=== PATIENT | male | born 1965 | race African-American/Black ===

== ENCOUNTER 2016-11-07 19:11 | Inpatient (IN) | payer OTHER ==
[~2016-11-07] VITALS: Ht 167.6 cm; Wt 107.0 kg
[~2016-11-07 19:11] MED LIST: COLACE100 MG PO; LAXATIVE15 M2 PO; MOTRIN800 MG PO; OXYCODONE HCL5 MG PO; PERCOCET 5/31 TABLET PO; ZOFRAN4 MG PO
[2016-11-07 20:21] LABS: MCH 27.7 PG (29.0-34.0); MCHC 33.9 G/DL (30.0-36.0); MCV 81.8 FL (86-99); MEAN PLAT.VOLUME 11.3 uM^3 (9.0-12.4); PLATELET COUNT 223 K/uL (156-360); RBC DIS.WIDTH-CV 12.9 % (11.8-14.6); RBC DIS.WIDTH-SD 37.9 % (39-53); RED BLOOD COUNT 5.01 M/uL (4.00-5.50); WHITE BLOOD COUNT 10.8 K/uL (4.1-10.2)
[2016-11-07 20:40] LABS: CHLORIDE 101 mEq/L (99-109); POTASSIUM 3.7 mEq/L (3.7-5.4); SODIUM 136 mEq/L (136-147)
[2016-11-07 20:43] LABS: GLUCOSE 156 mg/dL (70-99)
[2016-11-07 20:44] LABS: ANION GAP 11 MEQ/L (2-14); TOTAL BILIRUBIN 1.4 mg/dL (0.0-1.0)
[2016-11-07 20:46] LABS: ALKALINE PHOSPHATASE 68 IU/L (3-129); GFR ESTIMATE (CALCULATED) > 59 mL/min/
[2016-11-07 20:47] LABS: UREA NITROGEN (BUN) 11 mg/dL (9-23)
[2016-11-07 20:48] LABS: DIRECT BILIRUBIN 0.5 mg/dL (0.0-0.3)
[2016-11-07 20:50] LABS: LIPASE 102 U/L (1.0-51.0)
[2016-11-07 21:13] LABS: ADD MIUA? YES; BILIRUBIN NEGATIVE; BLOOD SMALL; COLOR DK YELLOW ((YELLOW)); GLUCOSE (STRIP) NEGATIVE; KETONES 40; LEUKOCYTES NEGATIVE; NITRITE NEGATIVE; PROTEIN (STRIP) 30; SPECIFIC GRAVITY 1.027 (1.000-1.030)
[2016-11-07 21:35] LABS: BACTERIA RARE; CASTS NONE SEEN /LPF; CRYSTALS NONE SEEN; EPITHELIAL CELLS RARE; RED BLOOD CELLS 0-5 /HPF (0-5); UCUL ADDED? NO; WHITE BLOOD CELLS RARE /HPF (0-5)
[2016-11-07 21:36] LABS: MUCUS 1+
[2016-11-08 05:36] LABS: HEMATOCRIT 38.4 % (38.0-50.0); MCH 27.7 PG (29.0-34.0); MCHC 33.9 G/DL (30.0-36.0); MCV 81.9 FL (86-99); MEAN PLAT.VOLUME 11.1 uM^3 (9.0-12.4); PLATELET COUNT 200 K/uL (156-360); RBC DIS.WIDTH-CV 12.8 % (11.8-14.6); RBC DIS.WIDTH-SD 37.7 % (39-53); RED BLOOD COUNT 4.69 M/uL (4.00-5.50); WHITE BLOOD COUNT 12.3 K/uL (4.1-10.2)
[2016-11-08 05:42] LABS: CHLORIDE 101 mEq/L (99-109); POTASSIUM 3.9 mEq/L (3.7-5.4); SODIUM 136 mEq/L (136-147)
[2016-11-08 05:44] LABS: GLUCOSE 186 mg/dL (70-99)
[2016-11-08 05:45] LABS: ANION GAP 11 MEQ/L (2-14)
[2016-11-08 05:46] LABS: TOTAL BILIRUBIN 1.3 mg/dL (0.0-1.0)
[2016-11-08 05:48] LABS: ALKALINE PHOSPHATASE 61 IU/L (3-129); GFR ESTIMATE (CALCULATED) > 59 mL/min/
[2016-11-08 05:49] LABS: UREA NITROGEN (BUN) 9 mg/dL (9-23)
[2016-11-08 05:51] LABS: LIPASE 35 U/L (1.0-51.0)
[2016-11-08 15:10] VITALS: BP 153/89
[2016-11-08 19:31] VITALS: BP 150/80
[2016-11-08 23:29] VITALS: BP 167/80
[2016-11-09 03:27] VITALS: BP 170/88
[2016-11-09 07:22] LABS: HEMATOCRIT 37.2 % (38.0-50.0); MCHC 33.1 G/DL (30.0-36.0); MCV 84.7 FL (86-99); MEAN PLAT.VOLUME 11.9 uM^3 (9.0-12.4); PLATELET COUNT 225 K/uL (156-360); RBC DIS.WIDTH-SD 39.4 % (39-53); RED BLOOD COUNT 4.39 M/uL (4.00-5.50); WHITE BLOOD COUNT 12.4 K/uL (4.1-10.2)
[2016-11-09 07:35] VITALS: BP 137/83
[2016-11-09 07:49] LABS: ALKALINE PHOSPHATASE 65 IU/L (3-129); ANION GAP 11 MEQ/L (2-14); CHLORIDE 102 MEQ/L (99-109); GFR ESTIMATE (CALCULATED) > 59 mL/min/; GLUCOSE 158 mg/dL (70-99); POTASSIUM 4.4 MEQ/L (3.7-5.4); SAMPLE HEMOLYSIS CHECK 0; SAMPLE ICTERIC CHECK 0; SAMPLE LIPEMIA CHECK 0; SODIUM 139 MEQ/L (136-147); TOTAL BILIRUBIN 1.6 MG/DL (0.0-1.0); UREA NITROGEN (BUN) 9 mg/dL (9-23)
[2016-11-09 11:45] VITALS: BP 147/82
[2016-11-09 15:30] VITALS: BP 145/84
[2016-11-09 19:35] VITALS: BP 146/85
[2016-11-09 23:05] VITALS: BP 136/90
[2016-11-10 03:05] VITALS: BP 166/90
[2016-11-10 07:35] LABS: ALKALINE PHOSPHATASE 78 IU/L (3-129); ANION GAP 8 MEQ/L (2-14); CHLORIDE 103 MEQ/L (99-109); GFR ESTIMATE (CALCULATED) > 59 mL/min/; GLUCOSE 138 mg/dL (70-99); HEMATOCRIT 36.7 % (38.0-50.0); MCHC 32.7 G/DL (30.0-36.0); MCV 85.7 FL (86-99); MEAN PLAT.VOLUME 11.6 uM^3 (9.0-12.4); PLATELET COUNT 219 K/uL (156-360); POTASSIUM 4.1 MEQ/L (3.7-5.4); RBC DIS.WIDTH-SD 39.4 % (39-53); RED BLOOD COUNT 4.28 M/uL (4.00-5.50); SAMPLE HEMOLYSIS CHECK 0; SAMPLE ICTERIC CHECK 0; SAMPLE LIPEMIA CHECK 0; SODIUM 137 MEQ/L (136-147); TOTAL BILIRUBIN 1.5 MG/DL (0.0-1.0); UREA NITROGEN (BUN) 9 mg/dL (9-23)
[2016-11-10 07:40] VITALS: BP 134/82
[2016-11-10] MEDS ORDERED: HYDROCODON-ACE1 EAC7 PO (13:15)
== END 2016-11-10 14:50 | disposition home or self-care (01) | DRG 414 ==
LOC: EME 19:11 → 2EAST 11-08 00:40 → EDOF 11-08 00:40 → 2EAST 11-08 15:13
PROVIDERS: Surgery
DX: K80.00 Calculus of gallbladder with acute cholecystitis without obstruction (principal); K65.9 Peritonitis, unspecified; K42.0 Umbilical hernia with obstruction, without gangrene; K76.0 Fatty (change of) liver, not elsewhere classified; E86.0 Dehydration; E66.9 Obesity, unspecified; Z68.38 Body mass index [BMI] 38.0-38.9, adult; Z23 Encounter for immunization
CPT/HCPCS: 74022; 74177; 80053; 81003; 82248; 83690; 85027; 88304; 93005; 99281; 99285; J1100; J1170; J1650; J1885; J2250; J2405; J2710; J3010; J7040